=== PATIENT | male | born 1965 | race Caucasian/White ===

== ENCOUNTER → 2022-11-08 | Outpatient (CLI) | payer OTHER | END | disposition home or self-care (01) | LOC: LAB SHORT 07:00 → LAB 07:00 | DX: L08.9 Local infection of the skin and subcutaneous tissue, unspecified (principal) | CPT/HCPCS: 87070; 87075; 87077; 87147; 87186; 87205 ==

== ENCOUNTER 2024-06-06 08:30 | Emergency (ER) | payer OTHER ==
[~2024-06-06] VITALS: Ht 198.1 cm; Wt 115.7 kg
[2024-06-06 09:27] LABS: BASOPHILS ABSOLUTE AUTO 0.03 K/mm3 (0.00-0.23); BASOPHILS PERCENT AUTO 0 % (0-2); EOSINOPHILS ABSOLUTE AUTO 0.38 K/mm3 (0.00-0.68); EOSINOPHILS PERCENT AUTO 5 % (0-6); Hematocrit 48.7 % (37.0-53.0); Hemoglobin 16.9 g/dL (13.5-17.5); IMMATURE GRAN ABSOLUTE AUTO 0.01 K/mm3 (0.00-0.10); IMMATURE GRAN PERCENT AUTO 0 % (0-1); LYMPHOCYTES ABSOLUTE AUTO 1.86 K/mm3 (0.84-5.20); LYMPHOCYTES PERCENT AUTO 25 % (21-46); MONOCYTES ABSOLUTE AUTO 0.85 K/mm3 (0.16-1.47); MONOCYTES PERCENT AUTO 11 % (4-13); Mean Corpuscular HGB 33.2 pg (26.0-34.0); Mean Corpuscular HGB Conc 34.7 g/dL (31.5-36.5); Mean Corpuscular Volume 96 fL (80-100); Mean Platelet Volume 9.7 fL (9.1-12.4); NEUTROPHILS ABSOLUTE AUTO 4.34 K/mm3 (1.96-9.15); NEUTROPHILS PERCENT AUTO 58 % (41-73); Platelet Count 356 K/mm3 (150-400); RDW Coefficient Variation 13.2 % (11.7-14.2); RDW Standard Deviation 46.8 fL (35.1-46.3); Red Blood Cell Count 5.09 M/mm3 (4.30-5.90); White Blood Cell Count 7.47 K/mm3 (4.00-11.30)
[2024-06-06 09:55] LABS: Albumin, Blood 4.2 g/dL (3.4-5.0); Albumin/Globulin Ratio 1.4 (0.8-1.8); Bilirubin, Total 0.6 mg/dL (0.1-1.0); Bun/Creatinine Ratio 17.9 (12.0-20.0); Calcium, Blood 8.9 mg/dL (8.5-10.1); Creatinine, Blood 0.78 mg/dL (0.60-1.20); Globulin, Blood 3.1 g/dL (2.2-4.0); Potassium, Blood 4.3 mmol/L (3.5-5.5); Total Protein, Blood 7.3 g/dL (6.4-8.2)
[2024-06-06] MEDS ORDERED: Nitroglycerin 0.4 MG SUBL SL PRN (10:40)
[2024-06-06] MEDS ORDERED: Acetaminophen 500 MG Tab PO ONE (11:05)
[2024-06-06] MEDS ORDERED: Aspirin 325 MG Tab PO ONE (12:25)
[2024-06-06] MEDS ORDERED: Metoprolol Succinate 25 MG TABCR PO ONE (12:25)
[2024-06-06 12:30] VITALS: BP 173/108
[2024-06-06] MEDS ORDERED: Toprol Xl25 MG PO (12:35)
[2024-06-06] MEDS ORDERED: Nitrostat0.4 MG SL (12:35)
[2024-06-06] MEDS ORDERED: Aspirin EC81 MG PO (12:35)
== END 2024-06-06 12:56 | disposition left against medical advice (07) ==
LOC: ER 08:30
PROVIDERS: Emergency Medicine
DX: R07.89 Other chest pain (principal); R03.0 Elevated blood-pressure reading, without diagnosis of hypertension
CPT/HCPCS: 71045; 80053; 84484; 85025; 85379; 93005; 93010; 99285-25; A9270

== ENCOUNTER 2024-06-25 16:58 | Observation (INO) | payer OTHER ==
[~2024-06-25] VITALS: Ht 198.1 cm; Wt 113.7 kg
[~2024-06-25 16:58] MED LIST: Aspirin EC81 MG PO; Nitrostat0.4 MG SL; Toprol Xl25 MG PO
[2024-06-25] MEDS ORDERED: Aspirin 325 MG Tab PO ONE (18:15)
[2024-06-25 18:20] LABS: BASOPHILS ABSOLUTE AUTO 0.04 K/mm3 (0.00-0.23); BASOPHILS PERCENT AUTO 1 % (0-2); EOSINOPHILS ABSOLUTE AUTO 0.26 K/mm3 (0.00-0.68); EOSINOPHILS PERCENT AUTO 3 % (0-6); Hematocrit 45.6 % (37.0-53.0); Hemoglobin 15.8 g/dL (13.5-17.5); IMMATURE GRAN ABSOLUTE AUTO 0.01 K/mm3 (0.00-0.10); IMMATURE GRAN PERCENT AUTO 0 % (0-1); LYMPHOCYTES ABSOLUTE AUTO 2.33 K/mm3 (0.84-5.20); LYMPHOCYTES PERCENT AUTO 28 % (21-46); MONOCYTES ABSOLUTE AUTO 0.89 K/mm3 (0.16-1.47); MONOCYTES PERCENT AUTO 11 % (4-13); Mean Corpuscular HGB 33.2 pg (26.0-34.0); Mean Corpuscular HGB Conc 34.6 g/dL (31.5-36.5); Mean Corpuscular Volume 96 fL (80-100); Mean Platelet Volume 9.3 fL (9.1-12.4); NEUTROPHILS ABSOLUTE AUTO 4.78 K/mm3 (1.96-9.15); NEUTROPHILS PERCENT AUTO 58 % (41-73); Platelet Count 276 K/mm3 (150-400); RDW Coefficient Variation 13.4 % (11.7-14.2); RDW Standard Deviation 47.8 fL (35.1-46.3); Red Blood Cell Count 4.76 M/mm3 (4.30-5.90); White Blood Cell Count 8.31 K/mm3 (4.00-11.30)
[2024-06-25 18:54] LABS: Alanine Aminotransfer (ALT/SGP 24 U/L (12-78); Albumin, Blood 4.1 g/dL (3.4-5.0); Albumin/Globulin Ratio 1.5 (0.8-1.8); Alk Phos 65 U/L (50-136); Anion Gap 12 mmol/L (3-11); Aspartate Aminotrans (AST/SGOT 15 U/L (12-37); Bilirubin, Total 0.5 mg/dL (0.1-1.0); Blood Urea Nitrogen 15 mg/dL (8-24); Bun/Creatinine Ratio 19.5 (12.0-20.0); CHOL/HDL RATIO 2.8; CO2, Blood 25 mmol/L (21-32); Calcium, Blood 8.8 mg/dL (8.5-10.1); Chloride, Blood 102 mmol/L (98-108); Cholesterol 203 mg/dL (50-200); Creatinine, Blood 0.77 mg/dL (0.60-1.20); Globulin, Blood 2.7 g/dL (2.2-4.0); Glomerular Filtration Rate 103 (60-); Glucose, Blood 90 mg/dL (70-99); HDL Cholesterol 72 mg/dL (>39); LDL/HDL RATIO 1.4; Low Density Lipoprotein Chol 99 mg/dL (0-110); Potassium, Blood 3.7 mmol/L (3.5-5.5); Sodium, Blood 135 mmol/L (136-145); Total Protein, Blood 6.8 g/dL (6.4-8.2); Triglycerides 159 mg/dL (30-160); Very Low Density Lipoprot Chol 31 mg/dL (6-32)
[2024-06-25 20:34] VITALS: BP 155/90
--- NOTE | 2024-06-25 22:35 | NUR ---
ADMIT NOTE 59 YR OLD MALE ADMITTED TO FLOOR ROM THE ED WITH DX OF POSSIBLE CVA WITH LEFT SIDE WEAKNESS. ED RN REPORTED THAT SYMPTOMS STARTED YESTERDAY OF DECREASED FEELING OF LEFT LOWER LEG, BUT DIDNT COME IN TO THE ED UNTIL EARLIER TODAY WHEN HIS LEFT ARM WAS HAVING NUMBNESS AND TINGLING. EDEDM OF BLE. RECEIVED ASA IN THE ED BEFORE COMING TO ROOM. ED RN REPORTED PT AD HX OF CHEST PAIN A MONTH AGO BUT LEFT THE HOSPITAL BEFORE GETTING TREATMENT. HEAD CT NEGATIVE. NEGATIVE TROP LEVEL. ALERT AND ORINETED X 4, WITHDRAWN. UP AD TONY WITHOUT ASSIST. OREINTED TO USE OF CALL LIGHT. TOLERATED HS SNACK. [employer] SR AT 60. CALL LIGHT IN REACH. RAILS UP X 2 AND BED IN LOW POSITION FOR SAFETY. WILL CONT TO MONITOR
[2024-06-25 23:34] VITALS: BP 147/82
[2024-06-26 03:07] VITALS: BP 153/94
--- NOTE | 2024-06-26 03:32 | NUR ---
[employer] MACHINE OPERATOR SUMMARY BP HIGH NORMAL, OTHERWISE, VSS. WAS ADMITTED EARLIER IN THE SHIFT WITH POSSIBLE CVA WITH LEFT SIDE DECREASED SENSATION IN ARM AND LEG. (SEE DOCUMENTATION). UP AD TONY. ALERT AND ORIENTED. HAS BEEN RESTING QUIETLY WITH FEW INTERRUPTIONS SINCE HS. RESPS EVEN. NEURO CHECK AT 314, APPEARS BETTER THAN THAT OF ADMISSION HE VOICED THAT HIS FEELING IN HIS LEFT ARM IS GETTING BETTER. MED [employer] SR. POSSIBLE MRI LATER TODAY. CALL LIGHT IN REACH, RAILS UP X 2 AND BED IN LOW POSITION FOR SAFETY. WILL CONTINUE TO MONITOR
[2024-06-26 07:25] VITALS: BP 149/95
[2024-06-26] MEDS ORDERED: Enoxaparin 40 MG/0.4 ML SYR SC SCH (09:00)
[2024-06-26] MEDS ORDERED: Aspirin 81 MG Chew PO SCH (09:00)
[2024-06-26 11:44] VITALS: BP 152/92
[2024-06-26 16:09] VITALS: BP 152/94
--- NOTE | 2024-06-26 16:56 | NUR ---
SHIFT/DISCHARGE SUMMARY: PATIENT A/OX4, PLEASANT AND COOPERATIVE c CARE. PATIENT DENIES CP/PRESSURE, SOB, N/V AND DIZZINESS. PATIENT REPORTS NUMBNESS TO L FOREARM, NUMBNESS AND TINGLING TO L FOOT, OVERALL HAS IMPROVED. PATIENT ON TELE, SB IN THE 50'S BPM. PATIENT RECEIVED SCHEDULED MEDS PER EMAR. VITAL SIGNS REVIEWED. PATIENT HAD MRI AND ECHO DONE TODAY; DR. PAGE DISCUSSED c PATIENT REGARDING TEST RESULT. PATIENT VERBALIZED UNDERSTANDING AND NO FURTHER QUESTIONS. PIV DC'D. PATIENT DISCHARGE HOME. DISCHARGE INSTRUCTIONS PACKET GIVEN TO PATIENT. PATIENT EDUCATED ON ADMITTING DX'S OF ACUTE CVA, S/S, TX AND TO F/U c PCP. PATIENT VERBALIZED UNDERSTANDING AND NO FURTHER QUESTIONS. PATIENT HAS NO NEW RX. ALL PERSONAL BELONGINGS WERE SENT c THE PATIENT. PATIENT LEFT THE ROOM AT 1654. PATIENT DECLINED TO BE ESCORTED AND TRASNPORTED VIA W/CHAIR. PER PATIENT "I NEED TO WALK, I HAVE BEEN LAYING IN THIS BED AND I DON'T NEED SOMEONE TO WALK c ME. I'M A BIG BOY."
== END 2024-06-26 16:55 | disposition home or self-care (01) ==
LOC: ER 16:58 → ERHOLD 16:59 → MEDS 16:59
PROVIDERS: Emergency Medicine; ADMIT Student in an Organized Health Care Education/Training Program
DX: G45.9 Transient cerebral ischemic attack, unspecified (principal); I10 Essential (primary) hypertension; M79.89 Other specified soft tissue disorders; F17.210 Nicotine dependence, cigarettes, uncomplicated; F10.20 Alcohol dependence, uncomplicated; Z79.82 Long term (current) use of aspirin; Z79.899 Other long term (current) drug therapy
CPT/HCPCS: 70450; 70551; 80053; 80061; 82947; 83036; 83880; 84443; 84484; 85025; 86140; 93005; 93010; 93306; 93880; 96372; 99285-25; A9270; G0378; J1650

== ENCOUNTER → 2025-01-01 | Outpatient (CLI) | payer OTHER | LOC: LAB 10:15 → LAB SHORT 10:15 | DX: M17.10 Unilateral primary osteoarthritis, unspecified knee (principal) | CPT/HCPCS: 87070; 87077; 87186; 87205 ==

== ENCOUNTER 2025-03-06 03:36 | Day surgery (SDC) | payer OTHER | END 2025-03-06 23:00 | disposition home or self-care (01) | LOC: WOUND 03:36 | DX: L97.822 Non-pressure chronic ulcer of other part of left lower leg with fat layer exposed (principal); L97.812 Non-pressure chronic ulcer of other part of right lower leg with fat layer exposed; I87.2 Venous insufficiency (chronic) (peripheral); Z87.891 Personal history of nicotine dependence | CPT/HCPCS: G0463 ==

== ENCOUNTER 2025-03-08 00:38 | Day surgery (SDC) | payer OTHER ==
[2025-03-08] MEDS ORDERED: Lidocaine HCl 4% Cream 5 GM ONE (10:52)
== END 2025-03-08 23:00 | disposition home or self-care (01) ==
LOC: WOUND 00:38
DX: L97.822 Non-pressure chronic ulcer of other part of left lower leg with fat layer exposed (principal); L97.812 Non-pressure chronic ulcer of other part of right lower leg with fat layer exposed; I87.2 Venous insufficiency (chronic) (peripheral)
CPT/HCPCS: A9270

== ENCOUNTER 2025-03-19 03:18 | Day surgery (SDC) | payer OTHER ==
[2025-03-19] MEDS ORDERED: Lidocaine HCl 4% Cream 5 GM ONE (14:59)
== END 2025-03-19 23:00 | disposition home or self-care (01) ==
LOC: WOUND 03:18
DX: L97.822 Non-pressure chronic ulcer of other part of left lower leg with fat layer exposed (principal); L97.812 Non-pressure chronic ulcer of other part of right lower leg with fat layer exposed; I87.2 Venous insufficiency (chronic) (peripheral)
CPT/HCPCS: A9270; G0463

== ENCOUNTER 2025-03-26 06:51 | Day surgery (SDC) | payer OTHER ==
[2025-03-26] MEDS ORDERED: Lidocaine HCl 4% Cream 5 GM ONE (15:06)
== END 2025-03-26 23:00 | disposition home or self-care (01) ==
LOC: WOUND 06:51
DX: L97.822 Non-pressure chronic ulcer of other part of left lower leg with fat layer exposed (principal); L97.812 Non-pressure chronic ulcer of other part of right lower leg with fat layer exposed; I87.2 Venous insufficiency (chronic) (peripheral)
CPT/HCPCS: A9270; G0463